=== PATIENT | male | born 1970 | race Caucasian/White ===

== ENCOUNTER 2019-04-12 18:24 | Emergency (ER) | payer BC ==
[~2019-04-12] VITALS: Ht 177.8 cm; Wt 74.8 kg
[2019-04-12 18:52] VITALS: BP 147/94
[2019-04-12] MEDS ORDERED: KETOROLAC 30 MG/ML VIAL IM ONE (20:15)
[2019-04-12] MEDS ORDERED: DIAZEPAM 5 MG TAB PO ONE (20:15)
[2019-04-12 22:24] VITALS: BP 147/94
== END 2019-04-12 22:24 | disposition home or self-care (01) ==
LOC: MED 18:24
DX: S09.90XA Unspecified injury of head, initial encounter (principal); S16.1XXA Strain of muscle, fascia and tendon at neck level, initial encounter; V43.52XA Car driver injured in collision with other type car in traffic accident, initial encounter; Y93.89 Activity, other specified; Y92.89 Other specified places as the place of occurrence of the external cause; Y99.8 Other external cause status
CPT/HCPCS: 70450; 71045; 72125; 96372; 99284; J1885